=== PATIENT | male | born 1940 | race Caucasian/White ===

== ENCOUNTER 2022-11-28 12:31 | Day surgery (SDC) | payer MEDICARE, OTHER, SELFPAY ==
[2022-11-26 09:36] VITALS: BMI 27.6
[2022-11-28] VITALS (7 sets, daily range): BP systolic 129–153; BP diastolic 66–86; PULSE 55–73; RESP 14–18; TEMP 36.2–36.8; O2SAT 95–96; BMI 27.6
[2022-11-28] MEDS: LACTATED RINGERS 1,000 ML 42 ML IV (13:32)
--- NOTE | 2022-11-28 14:19 | PM.PREOP ---
Pre-operative Note Interval Note History & Physical reviewed/Exam performed by Physician: Yes Changes to H&P: No
[2022-11-28] MEDS: CEFAZOLIN 2 GM/100 ML PREMIX 100 ML IV (15:10)
--- NOTE | 2022-11-28 15:26 | SUR.OPER ---
Supine on padded OR bed, head on pillow, arms padded and tucked at sides, legs uncrossed, safety belt at thigh, tape over blanket over lower legs .
[2022-11-28] MEDS: BUPIVACAINE 0.25% (PF) VIAL 30 ML INJ (15:32)
--- NOTE | 2022-11-28 17:49 | P.OP_ITS ---
Operative Date/Time/Diagnoses Date of procedure: 11/28/22 Time of procedure: 17:49 Pre-op diagnosis: Recurrent left inguinal hernia. Right inguinal hernia Post-op diagnosis: same Procedure & Clinicians Procedure: Laparoscopic repair of recurrent left hernia. Laparoscopic repair of right inguinal hernia Same procedure as scheduled: Yes Indications: 82-year-old symptomatic bilateral hernia. Prior open left-sided repair. Surgeon: Joni Moore Mobile Ui/Ux Designer: Julio Crandall Anesthesia Type: General Operative Notes Findings: Bilateral direct floor defect. Well adhered mesh in the left inguinal canal Specimen(s): none sent Estimated Blood Loss (mL): 30 Procedure in detail: The patient was brought to the operating room and placed supine on the table. Bilateral sequential compression devices were applied. General anesthesia was induced and they were intubated with an endotracheal tube. A machuca cath was placed in sterile fashion. They received Ancef prior to skin incision. They were prepped and draped in sterile fashion. A time out was performed to ensure the correct patient, procedure and necessary equipment within the operating room. The skin was infiltrated with 0.25% bupivicaine. A 1 cm supra umbilical midline incision was made. The fascia was sharply incised and the abdomen entered traumatically. A 10mm balloon port was placed and pneumoperitoneum was established at 15mm Hg. Inspection of the abdomen demonstrated no evidence of injury upon entry. Two 5 mm ports were then placed under direct visualization in the right and left lower quadrant lateral to the rectus muscle. A right and left direct hernias were observed. There were adhesions between the sigmoid colon and the left pelvic side wall which were carefully dissected. Starting on the left side the peritoneum 4 cm superior to the deep inguinal ring between the medial umbilical ligament and the anterior superior iliac spine was incised. The medial preperitoneal dissection was carried out into the space of Retzius bluntly, the bladder was swept inferiorly, the pubis and Raul's ligament were identified. Next attention was turned towards the lateral aspect of the peritoneal flap. The preperitoneal fat with the testicular vessels was carefully dissected off the inferior peritoneal flap. The cord was carefully inspected there was no evidence of a indirect inguinal hernia. There was a ball of mesh that was adherent within the left now.. The attachements to the direct hernia sac were divided and the direct defect was reduced. A large Bard 3D Max mesh was then placed into the abdomen and positioned such that the myopectineal orifice was completely covered with good overlap on all sides. The peritoneal flap was then repositioned back to its original position and a running V lock suture was used to close the peritoneum such that no bowel could herniate into the preperitoneal space. The area was examined for hemostasis. Next the right side was addressed. The peritoneum 4 cm superior to the deep inguinal ring between the medial umbilical ligament and the anterior superior iliac spine was incised. The medial preperitoneal dissection was carried out into the space of Retzius bluntly, the bladder was swept inferiorly, the pubis and Raul's ligament were identified. Next attention was turned towards the lateral aspect of the peritoneal flap. The preperitoneal fat with the testicular vessels was carefully dissected off the inferior peritoneal flap. The cord was carefully inspected there was no evidence of indirect defect or cord lipoma. The attachements to the direct hernia sac were divided and the direct defect was reduced. A large Bard 3D Max mesh was then placed into the abdomen and positioned such that the myopectineal orifice was completely covered with good overlap on all sides. The peritoneal flap was then repositioned back to its original position and a running V lock suture was used to close the peritoneum such that no bowel could herniate into the preperitoneal space. The area was examined for hemostasis. The 5mm trocars were removed under direct visualization and pneumoperitoneum was deflated through the umbilical trocar, The fascia at the umbilicus was closed with 0-Vicryl in figure of 8 fashion, skin closed with 4-0 Monocyl followed by Dermabond. The sponge and instrument count at the end of the case was correct. Both testicles were entirely within the scrotum at the end of the case. The patient emerged from anesthsia was extubated and transferred to recovery in stable condition. Complications: none Post-operative Condition: stable Disposition: same day surgery
== END 2022-11-28 17:23 | disposition home or self-care (01) ==
PROVIDERS: PCP Family Medicine; Referring Provider Surgery; Visit Provider Surgery
PROC: 0YQ64ZZ Repair Left Inguinal Region, Percutaneous Endoscopic Approach (ICD-10-PCS; CPT 49651; principal; 2022-11-28 14:15)
DX: K40.91 Unilateral inguinal hernia, without obstruction or gangrene, recurrent (principal); K40.90 Unilateral inguinal hernia, without obstruction or gangrene, not specified as recurrent; K66.0 Peritoneal adhesions (postprocedural) (postinfection)
CPT/HCPCS: 49651; 49650; 49561; J0690; J2250; J2704; J3010

== ENCOUNTER 2024-02-29 16:55 | Emergency (ER) | payer MEDICARE, OTHER, SELFPAY ==
[2024-02-29] VITALS (7 sets, daily range): BP systolic 137–175; BP diastolic 76–79; PULSE 58–116; RESP 15–97; TEMP 36.6; O2SAT 92–98; BMI 27.2
--- NOTE | 2024-02-29 18:13 | DI.CT.S_ITS ---
PROCEDURE: CT ABDOMEN PELVIS W CON INDICATIONS: constipation vs obstruction TECHNIQUE: After the administration of intravenous contrast, axial sections acquired from the lung bases to the pubic symphysis. Coronal and sagittal reformats were performed. For radiation dose reduction, the following was used: automated exposure control, adjustment of mA and/or kV according to patient size. COMPARISON: None. FINDINGS: Image quality: Diagnostic Lower chest: Basal atelectasis. Trace hiatal hernia. Normal heart size. Liver: There are many small hypoattenuating liver lesions that are too small to characterize, usually cysts or hemangiomas. Gallbladder and biliary system: Unremarkable, nondilated Pancreas: No ductal dilation Spleen: Nonenlarged Adrenals: No discrete nodules Kidneys: No solid mass. No hydronephrosis. Right anterior renal cysts. Subcentimeter lesions are too small to characterize, usually also cysts. Vessels and lymph nodes: The main portal vein appears patent. Atherosclerotic calcifications are present. No abdominal aortic aneurysm. There is no pathologic lymphadenopathy by size criteria. Bowel and peritoneum: No evidence of small bowel obstruction. No pathologic ascites. No drainable abscess. Fecal loading is overall [id number]. Colonic diverticula are present, without CT evidence of acute inflammation. The appendix is nondilated. Focal wall thickening is seen in the hepatic flexure of the colon with under distention noted. Body wall: Small fat containing umbilical hernia and moderate fat containing inguinal hernias. The left inguinal hernia also contains sigmoid colon which does not appear acutely congested Pelvis: Bladder appears unremarkable. Heterogeneous prostate with calcifications, not well assessed on this study. Bones: There are degenerative changes. No acute or suspicious osseous finding. IMPRESSION: No acute small bowel obstruction. Overall fecal loading is [id number]. Bilateral moderate inguinal hernias, containing sigmoid colon on the left, without CT evidence of acute congestion. Focal wall thickening of the hepatic flexure of the colon, possibly artifact of peristalsis, however consider correlation with age-appropriate colonoscopy results. Other incidental findings above. Dictated by: Delmar Dixon M.D. on 02/29/2024 at 20:45 Approved by: Delmar Dixon M.D. on 02/29/2024 at 20:49
--- NOTE | 2024-02-29 19:45 | ED_ITS ---
HPI - General Adult General Chief complaint: Abdominal Pain Stated complaint: sent by PCP, worried about blockage Time Seen by Provider: 02/29/24 18:12 Source: patient Mode of arrival: Ambulatory History of Present Illness HPI narrative: Patient was an 83-year-old male who is here for evaluation under the advice of his primary care doctor to evaluate for a bowel obstruction. He states for the past several days he was had issues with constipation. He has been taking a laxatives which he has been able to have a bowel movement with taking these medicines but not without the medicine. He was still passing flatus. No vomiting. No abdominal pain. Has had inguinal hernia repairs in the past but no other abdominal surgeries. Related Data Home Medications Medication Instructions Recorded Confirmed lisinopril 20 mg tablet 20 mg PO QDAY ##0 07/15/11 12/13/22 omega-3 fatty acids [Fish Oil] PO 11/16/22 12/13/22 paroxetine HCl 10 mg tablet (Paxil) 10 mg PO DAILY 11/16/22 12/13/22 super 8 1 tab PO DAILY 11/16/22 12/13/22 Previous Rx's Medication Instructions Recorded acetaminophen 325 mg capsule 650 mg (2 x 325 mg) PO QID PRN 11/28/22 (Tylenol) pain #60 caps ibuprofen 200 mg tablet 400 mg (2 x 200 mg) PO Q6H #60 tabs 11/28/22 tramadol 50 mg tablet 50 mg PO Q6H PRN pain #25 tabs 11/28/22 Allergies Allergy/AdvReac Type Severity Reaction Status Date / Time No Known Drug Allergies Allergy Verified 12/13/22 09:13 Review of Systems Review of Systems ROS Unobtainable: All systems reviewed & are unremarkable except as noted in HPI and below Patient History Medical History Prostatitis HTN (hypertension) Hernia Surgical History (Updated 11/17/22 @ 14:15 by Joni Moore MD) H/O inguinal hernia repair S/P TURP History of prostate surgery Social History marital status: household members: spouse lives independently: Yes occupational status: previously employed Smoking Status: Never smoker alcohol intake: current substance use type: does not use Smoking Status: Never smoker alcohol intake frequency: holidays/special occasions only Exam Initial Vital Signs Initial Vital Signs: Vital Signs Temperature 97.8 F 02/29/24 17:53 Pulse Rate 116 H 02/29/24 17:53 Respiratory Rate 97 H 02/29/24 17:53 Blood Pressure 137/77 02/29/24 17:53 Pulse Oximetry 98 02/29/24 17:53 Oxygen Delivery Method Room Air 02/29/24 17:53 Const General: cooperative, comfortable and No ill appearing [facility] Head: normal to inspection and normocephalic Resp Effort & Inspection: normal respiratory effort Auscultation: clear to auscultation bilaterally Cardio Rate: regular rate Rhythm: regular rhythm GI Inspection: non-distended Palpation: soft, No firm, No guarding and No tender Skin General: no rashes or lesions noted Neuro General: patient alert, patient awake and moves all extremities Course Orders Ordered: ED Orders 02/29/24 18:13 CT abdomen pelvis w con Stat 02/29/24 19:46 Complete Blood Count AUTO DIFF Stat Comprehensive Metabolic Panel Stat Lipase Stat Vital Signs Vital signs: Vital Signs - 8 hr 02/29/24 17:53 02/29/24 19:44 02/29/24 19:46 Temperature 97.8 F Pulse Rate 116 H 65 62 Respiratory Rate 97 H 19 16 Blood Pressure 137/77 Pulse Oximetry 98 92 96 Oxygen Delivery Method Room Air 02/29/24 19:46 02/29/24 20:00 02/29/24 20:30 Temperature Pulse Rate 58 L 58 L Respiratory Rate 16 15 Blood Pressure 175/79 H Pulse Oximetry 98 98 Oxygen Delivery Method 02/29/24 21:00 02/29/24 21:02 02/29/24 21:02 Temperature Pulse Rate 59 L 58 L Respiratory Rate 18 24 Blood Pressure 161/76 H Pulse Oximetry 96 96 Oxygen Delivery Method Medical Decision Making Lab Data Lab results reviewed: Yes I reviewed the patient's lab results. 02/29/24 19:46 02/29/24 19:46 Labs: Lab Results 02/29/24 Range/Units 19:46 WBC 9.4 (4.5-11.0) X10^3/uL RBC 4.83 (4.5-5.9) X10^6/uL Hgb 15.3 (13.5-17.5) g/dL Hct 45.3 (41-53) % MCV 93.9 (80-100) fL MCH 31.6 (26-34) PG MCHC 33.7 (30-36) % RDW 13.4 (11.6-14.8) % Plt Count 205 (150-400) X10^3/uL Neut % (Auto) 62.2 (50-75) % Lymph % (Auto) 29.0 (25-40) % [place] % (Auto) 6.7 (3-14) % Eos % (Auto) 1.3 L (2-4) % Baso % (Auto) 0.8 (0-2) % Neut # (Auto) 5800 (5651-2488) /uL Lymph # (Auto) 2700 (7157-9946) /uL [place] # (Auto) 600 (0-900) /uL Eos # (Auto) 100 (0-450) /uL Baso # (Auto) 100 (0-100) /uL Sodium 137 (137-145) mmol/L Potassium 4.0 (3.4-5.1) mmol/L Chloride 103 (98-107) mmol/L Carbon Dioxide 27 (22-32) mmol/L BUN 20 (9-20) mg/dL Creatinine 1.16 (0.66-1.25) mg/dL Estimated GFR > 60 (>60) mL/min BUN/Creatinine Ratio 17.2 (6-22) Glucose 98 (80-110) mg/dL Calcium 9.1 (8.4-10.2) mg/dL Total Bilirubin 0.8 (0.2-1.3) mg/dL AST 34 (17-59) IU/L ALT 31 (<50) IU/L Alkaline Phosphatase 73 (38-126) U/L Total Protein 8.0 (6.3-8.2) g/dL Albumin 4.8 (3.5-5.0) g/dL Globulin 3.2 (1.7-4.1) g/dL Albumin/Globulin Ratio 1.5 (1.0-2.8) Lipase 55 (23-300) U/L Imaging Data CT scan - abdomen/pelvis: Radiologist's Impression: PROCEDURE: CT ABDOMEN PELVIS W CON INDICATIONS: constipation vs obstruction TECHNIQUE: After the administration of intravenous contrast, axial sections acquired from the lung bases to the pubic symphysis. Coronal and sagittal reformats were performed. For radiation dose reduction, the following was used: automated exposure control, adjustment of mA and/or kV according to patient size. COMPARISON: None. FINDINGS: Image quality: Diagnostic Lower chest: Basal atelectasis. Trace hiatal hernia. Normal heart size. Liver: There are many small hypoattenuating liver lesions that are too small to characterize, usually cysts or hemangiomas. Gallbladder and biliary system: Unremarkable, nondilated Pancreas: No ductal dilation Spleen: Nonenlarged Adrenals: No discrete nodules Kidneys: No solid mass. No hydronephrosis. Right anterior renal cysts. Subcentimeter lesions are too small to characterize, usually also cysts. Vessels and lymph nodes: The main portal vein appears patent. Atherosclerotic calcifications are present. No abdominal aortic aneurysm. There is no pathologic lymphadenopathy by size criteria. Bowel and peritoneum: No evidence of small bowel obstruction. No pathologic ascites. No drainable abscess. Fecal loading is overall [id number]. Colonic diverticula are present, without CT evidence of acute inflammation. The appendix is nondilated. Focal wall thickening is seen in the hepatic flexure of the colon with under distention noted. Body wall: Small fat containing umbilical hernia and moderate fat containing inguinal hernias. The left inguinal hernia also contains sigmoid colon which does not appear acutely congested Pelvis: Bladder appears unremarkable. Heterogeneous prostate with calcifications, not well assessed on this study. Bones: There are degenerative changes. No acute or suspicious osseous finding. IMPRESSION: No acute small bowel obstruction. Overall fecal loading is [id number]. Bilateral moderate inguinal hernias, containing sigmoid colon on the left, without CT evidence of acute congestion. Focal wall thickening of the hepatic flexure of the colon, possibly artifact of peristalsis, however consider correlation with age-appropriate colonoscopy results. Other incidental findings above. MDM Narrative Medical decision making narrative: CT scan shows no signs of bowel obstruction. Labs are unremarkable. He was still passing flatus. No vomiting. No abdominal pain. We did discuss constipation. We discussed the limitations of the CT scan. Advised that he continue with the laxatives until he has resolution of his constipation issues. We discussed return precautions and follow-up instructions. He expressed understanding and agreement plan. Discharge Plan Departure Patient Disposition: Home Clinical Impression: Constipation Instructions: DI for Constipation Activity Restrictions/Additional Instructions: Continue to take all of your medications as directed. I do recommend that you increase your fluid intake. You can continue to do the laxatives like we discussed. Contact your primary doctor for follow-up. Return to the emergency department for new symptoms. Prescriptions: No Action lisinopril 20 MG tablet 20 mg PO QDAY Qty: 0 paroxetine HCl [Paxil] 10 mg tablet 10 mg PO DAILY omega-3 fatty acids [Fish Oil] PO super 8 1 tab PO DAILY ibuprofen 200 mg tablet 400 mg PO Q6H Qty: 60 0RF acetaminophen [Tylenol] 325 mg capsule 650 mg PO QID PRN (Reason: pain) Qty: 60 0RF tramadol 50 mg tablet 50 mg PO Q6H PRN (Reason: pain) Qty: 25 0RF Referrals: Malick Camarillo MD [Primary Care Provider] - Stand Alone Forms: Patient Portal/API/Survey
[2024-02-29 19:54] LABS: Add Manual Diff / Slide Review NO; Basophils Absolute Auto 100 /uL (0-100); Basophils Percent Auto 0.8 % (0-2); Eosinophils Absolute Auto 100 /uL (0-450); Eosinophils Percent Auto 1.3 % (2-4); Hematocrit 45.3 % (41-53); Hemoglobin 15.3 g/dL (13.5-17.5); Lymphocytes Absolute Auto 2700 /uL (1100-4500); Mean Corpuscular HGB Conc 33.7 % (30-36); Mean Corpuscular Hemoglobin 31.6 PG (26-34); Mean Corpuscular Volume 93.9 fL (80-100); Monocytes Absolute Auto 600 /uL (0-900); Monocytes Percent Auto 6.7 % (3-14); Neutrophils Absolute Auto 5800 /uL (1500-7000); Neutrophils Percent Auto 62.2 % (50-75); Platelet Count 205 X10^3/uL (150-400); Red Blood Cell Count 4.83 X10^6/uL (4.5-5.9); Red Cell Distribution Width 13.4 % (11.6-14.8); White Blood Cell Count 9.4 X10^3/uL (4.5-11.0)
[2024-02-29 20:04] LABS: Alanine Aminotransferase 31 IU/L (<50); Albumin 4.8 g/dL (3.5-5.0); Albumin Globulin Ratio 1.5 (1.0-2.8); Alkaline Phosphatase 73 U/L (38-126); Aspartate Aminotransferase 34 IU/L (17-59); BUN Creatinine Ratio 17.2 (6-22); Bilirubin Total 0.8 mg/dL (0.2-1.3); Blood Urea Nitrogen 20 mg/dL (9-20); Calcium 9.1 mg/dL (8.4-10.2); Carbon Dioxide 27 mmol/L (22-32); Chloride 103 mmol/L (98-107); Estimated Glomerular Filt Rate > 60 mL/min (>60); Globulin 3.2 g/dL (1.7-4.1); Glucose 98 mg/dL (80-110); HEMOLYSIS < 15 (0-50); Lipase 55 U/L (23-300); Sodium 137 mmol/L (137-145)
== END 2024-02-29 21:06 | disposition home or self-care (01) ==
PROVIDERS: Emergency Provider Emergency Medicine; PCP Family Medicine
DX: K59.00 Constipation, unspecified (principal)
CPT/HCPCS: 36415; 74177; 80053; 83690; 85025; 99283; 99284; Q9967

== ENCOUNTER 2024-04-15 06:08 | Day surgery (SDC) | payer MEDICARE, OTHER, SELFPAY ==
[2024-04-03 14:04] VITALS: BMI 26.9
[2024-04-15] MEDS: ACETAMINOPHEN 325 MG TABLET 975 MG PO (06:48)
[2024-04-15] MEDS: LACTATED RINGERS 1,000 ML 42 ML IV (06:52)
[2024-04-15 06:53] VITALS: BMI 26.9
[2024-04-15 07:15] VITALS: BP 162/76; PULSE 63; RESP 16; TEMP 36.9; O2SAT 97
--- NOTE | 2024-04-15 07:44 | PM.PREOP ---
Pre-operative Note COVID-19 COVID-19 status: Not tested Interval Note History & Physical reviewed/Exam performed by Physician: Yes Changes to H&P: No ASA Class (for procedural sedation): III
[2024-04-15] MEDS: CEFAZOLIN 2 GM/100 ML PREMIX 100 ML IV (07:53)
--- NOTE | 2024-04-15 08:09 | SUR.OPER ---
Supine on padded OR bed, head on pillow, arms secured on padded arm boards at <90 degrees abduction, legs uncrossed, safety belt at torso, tape over blanket over lower legs.
[2024-04-15] MEDS: BUPIVACAINE 0.5% W/ EPI (PF) 30 ML VIAL INJ (08:21)
--- NOTE | 2024-04-15 10:23 | P.OP_ITS ---
Operative Date/Time/Diagnoses Date of procedure: 04/15/24 Time of procedure: 10:23 Pre-op diagnosis: Twice recurrent left inguinal hernia Post-op diagnosis: same Procedure & Clinicians Procedure: Open recurrent left inguinal hernia repair with mesh Same procedure as scheduled: Yes Surgeon: Avery Kimball Dynamometer Repairer: Julio Crandall Anesthesia Type: General Operative Notes Procedure in detail: Preoperative antibiotic was administered. The patient was brought to the operating room and placed on the table in supine position general anesthesia was induced. The left groin was prepped and draped in the normal fashion and a time-out was performed. Roughly 10 mL of local anesthetic were injected into the skin and subcutaneous adipose tissue over the left groin. A 9 cm incision was made over the left inguinal canal. Dissection was carried down through the subcutaneous adipose tissue. We encountered the external oblique fascia and we could feel the scar tissue from the prior open hernia repair closure. A 15 blade scalpel was used to open the external oblique aponeurosis. We used a combination of sharp dissection and cautery to open the external oblique and the adherent mesh. It appeared that the mesh from the open repair had detached from its anchoring at the pubis. There was a large hernia protruding into the left hemiscrotum in the laparoscopic mesh was palpable within the hernia. We did not attempt to excise the laparoscopic or open mesh. We eventually were able to dissect the hernia contents containing the laparoscopic mesh off the cord and reduce everything back into the abdomen. We placed a polypropylene mesh over the inguinal canal floor. The mesh was secured with multiple interrupted 3-0 Prolene sutures to the pubic tubercle and shelving edge of the inguinal ligament as well as to the conjoint tendon medially. We overlapped the tails to recreate an internal ring and secured the medial tail to the inguinal ligament with additional sutures. We injected some more local into the fatty tissue in the i nguinal canal and cord. Finally, we removed the Carmen drain and closed the external oblique fascia and its adherent mesh layer with a running 3-0 Vicryl suture. Skin was closed with interrupted 3-0 Vicryl dermal sutures and a running 4 Monocryl subcuticular stitch. EBL 25 mL The patient was awakened and brought to recovery room. Julio MCCLAIN provided assistance with exposure, retraction and closure of incisions. Post-operative Condition: stable Disposition: PACU
[2024-04-15 10:25] VITALS: BP 134/72; PULSE 71; RESP 19; TEMP 36.8; O2SAT 93
[2024-04-15 10:35] VITALS: BP 123/67; PULSE 67; RESP 15; TEMP 36.6; O2SAT 94
[2024-04-15 10:39] VITALS: BP 125/70; PULSE 70; RESP 15; TEMP 36.6; O2SAT 94
[2024-04-15 10:48] VITALS: BP 122/68; PULSE 67; RESP 13; TEMP 36.6; O2SAT 95
[2024-04-15 11:10] VITALS: BP 126/71; PULSE 69; RESP 16; TEMP 36.7; O2SAT 94
== END 2024-04-15 11:16 | disposition home or self-care (01) ==
PROVIDERS: PCP Family Medicine; Referring Provider Surgery; Visit Provider Surgery
PROC: (CPT 49520; principal; 2024-04-15 07:45)
DX: K40.91 Unilateral inguinal hernia, without obstruction or gangrene, recurrent (principal)
CPT/HCPCS: 49520; C1781; J0330; J0690; J1100; J2405; J2704; J3010; J3490